=== PATIENT | female | born 1945 | race Caucasian/White ===

== ENCOUNTER → 2024-09-06 | Outpatient (CLI) | payer MEDICARE, MEDICAID, SELFPAY ==
--- NOTE | 2024-09-06 13:00 | XR_ITS ---
Examination: Bone densitometry Date and time of exam:September 06, 2024 1308 hours INDICATIONS: Menopause age 47, family history mother hip fracture secondary to osteoporosis, personal history shoulder fracture Technique: Lumbar spine and hip total bone mineralization values of an calculated. Peak reference and age match control results have been displayed. Findings: Lumbar spine total bone mineralization is0.917 gm/cm2. This is 0.9 standard deviations below peak reference. This is 1.5 standard deviations above age-matched controls. Hip total bone mineralization is 0.570 gm/cm2 This is 3.0 standard deviations below peak reference. This is 1.2 standard deviations above age-matched controls Impression: There is normal mineralization based on lumbar spine measurements. There is osteoporosis based on hip measurements Lumbar mineralization is decreased 1.9% compared with April 18, 2021 Hip mineralization is decreased 7.0% compared with April 18, 2021
== END | disposition home or self-care (01) ==
LOC: CDIM 12:51
PROVIDERS: PCP Family Medicine; Referring Provider Nurse Practitioner Family; Visit Provider Nurse Practitioner Family
DX: M81.0 Age-related osteoporosis without current pathological fracture (principal)
CPT/HCPCS: 77080

== ENCOUNTER 2024-09-30 09:57 | Emergency (ER) | payer MEDICARE, MEDICAID, SELFPAY ==
[2024-09-30 10:24] VITALS: BP 148/83; PULSE 100; RESP 18; TEMP 36.7; O2SAT 99; BMI 18.6
--- NOTE | 2024-09-30 11:28 | EDNOTE_ITS ---
<Statement entered by Cecile العراقي MD - 10/06/24 17:56> As co-signing physician, I was present and available for consult prn. I concur with the plan and care as documented by the midlevel provider. ED Animal Bite RME/HPI General Chief Complaint: Animal Bite Stated Complaint: Cat bite by her own cat Time Seen by Provider: 09/30/24 10:29 Source: patient Arrival date/time: 09/30/24 09:57 this is a 79-year-old female who presents to the emergency department with complaints of a cat bite to her left lower limb. Patient reports she was and by her own cat while she provoked her. She reports she immediately cleansed the area there is 2 puncture wounds. no signs of infections. Related Data Home Medications ?Medication ?Instructions ?Recorded ?Confirmed gabapentin 300 mg capsule 300 mg PO TID #0 caps 11/05/16 07/11/23 albuterol sulfate 90 mcg/actuation 2 inh inhalation Q6HR PRN 05/01/21 07/11/23 aerosol inhaler Shortness Of Breath acetaminophen 650 mg 650 mg PO Q8HR PRN Pain 07/11/23 07/11/23 tablet,extended release (Arthritis Pain Relief (acetaminophen) ER) folic acid 400 mcg tablet 400 mcg PO DAILY 07/11/23 07/11/23 furosemide 20 mg tablet 20 mg PO BID 07/11/23 07/11/23 metoclopramide HCl 5 mg tablet 5 mg PO BID 07/11/23 07/11/23 naproxen 500 mg tablet 500 mg PO BID PRN Pain 07/11/23 07/11/23 pantoprazole 40 mg tablet,delayed 40 mg PO BID 07/11/23 07/11/23 release tramadol 50 mg tablet 50 mg PO Q6HR PRN Pain 07/11/23 07/11/23 umeclidinium 62.5 mcg-vilanterol 1 ea inhalation DAILY 07/11/23 07/11/23 25 mcg/actuation powdr for inhalation (Anoro Ellipta) Previous Rx's ?Medication ?Instructions ?Recorded amoxicillin 875 mg-potassium 1 tab PO BID #14 tabs 09/30/24 clavulanate 125 mg tablet Allergies Allergy/AdvReac Type Severity Reaction Status Date / Time No Known Allergies Allergy Verified 09/30/24 10:02 Review of Systems Review of Systems Systems Reviewed: All systems reviewed, normal except as documented Narrative Review of Systems: Gen: No fever, no chills, no weight loss EYES: No discharge, no visual changes, no pain HEENT: No ear pain, no congestion, no sore throat PULM: No shortness of breath, no cough, no congestion CV: No chest pain, no dyspnea on exertion, no palpitations GI: No nausea, no vomiting, no diarrhea, no pain, no constipation : No frequency, no urgency,? no dysuria Musc/skel: No joint pain, no back pain Skin: cat bite ED Exam Narrative Physical exam: General: Sittiing in Exam table in no acute distress, answering questions appropriately HENT: normocephalic, atraumatic, EOMI, PERRLA, moist mucous membranes Chest: chest wall is nontender Cardiac: regular rate and rhythm, normal S1 and S2, no murmurs, rubs, or gallops, capillary refill ?2 seconds Pulmonary: clear to auscultation bilaterally, no wheezing, crackles, or rhonchi Abdominal: active bowel sounds, soft, nontender, nondistended Neuro: A&OX3, CN II-XII intact, sensation grossly intact bilaterally in UE and LE. Skin: no rashes, no ecchymosis Ext: left lower limb- two puncture wounds, n none of erythemic no streaking noted. Course Quality Measures none Vital Signs Vital signs: Vital Signs Temperature 98.1 F 09/30/24 10:24 Pulse Rate 100 09/30/24 10:24 Respiratory Rate 18 09/30/24 10:24 Blood Pressure 148/83 H 09/30/24 10:24 Pulse Oximetry (%) 99 09/30/24 10:24 Oxygen Delivery Method Room Air 09/30/24 10:24 Animal Bite MDM Narrative MDM Narrative:: Non provoked cat bite, DT up to date Augmentin Sent to pharmacy Area cleansed dressing placed Patient data External records reviewed:: [facility] previous records Clinical information provided by:: patient Social determinants that could affect healthcare access:: none Patient has the following chronic illnesses:: none How is presenting disease/condition affected by chronic disease/condition?: no chronic disease Evaluation data The following diagnostics were reviewed and interpreted by me:: other (specify) Lab and/or radiology exams considered but not ordered:: none Interpretation Summary: none Medications / Prescriptions Medications or Prescriptions considered but not ordered:: none Medication administrations:: none Consultations Consultation(s) initiated? (list below): No Diagnosis Differential diagnosis animal bite: bite by animal, cat bite, dog bite and rabies contact Most likely diagnosis given after review of the tests above:: Cat bite Admission Indicated Admission indicated?: not indicated Explain why admission is indicated or not indicated:: none Admission Request Was there a request for admission?: No Disposition Plan Disposition Plan: Discharge Discharge Attestation Discharge Attestation: The patient and all family members were given an opportunity to ask questions and understood the discharge instructions. Discharge instructions specifically effects, indications for sooner follow up or return to the emergency department, and the expected course of current diagnosis. Patient condition: Stable Discharge Plan Plan Patient Disposition: HOME (Self Care) Patient condition on transfer: Stable Prescriptions/Referrals Prescriptions/Med Rec: New amoxicillin-pot clavulanate 875-125 mg tablet 1 tab PO BID Qty: 14 0RF No Action gabapentin 300 MG capsule 300 mg PO TID Qty: 0 albuterol sulfate 90 mcg/actuation HFA aerosol inhaler 2 inh INHALATION Q6HR PRN (Reason: Shortness Of Breath) Patient Comments: INHALE 1 PUFF BY MOUTH 4 TIMES A DAY NEEDED FOR SHORTNESS OF BREATH OR WHEEZING folic acid 400 mcg Tablet 400 mcg PO DAILY tramadol 50 mg tablet 50 mg PO Q6HR PRN (Reason: Pain) Hold Instructions: Resume on 07/12/23. Patient Comments: TAKE 1 TABLET BY MOUTH EVERY 6 HOURS FOR 10 DAYS acetaminophen [Arthritis Pain Relief (acetam)] 650 mg tablet extended release 650 mg PO Q8HR PRN (Reason: Pain) Patient Comments: TAKE 1 CAPLET BY MOUTH EVERY 8 HOURS NEEDED FOR 30 DAYS metoclopramide HCl 5 mg tablet 5 mg PO BID Patient Comments: TAKE 1 TABLET BY MOUTH EVERY MORNING AND AT BEDTIME pantoprazole 40 mg tablet,delayed release (DR/EC) 40 mg PO BID Patient Comments: TAKE 1 TABLET BY MOUTH TWICE A DAY furosemide 20 mg tablet 20 mg PO BID Patient Comments: TAKE 1 TABLET BY MOUTH TWICE A DAY naproxen 500 mg tablet 500 mg PO BID PRN (Reason: Pain) Patient Comments: TAKE 1 TABLET TWICE A DAY BY ORAL ROUTE NEEDED. Anoro Ellipta 62.5-25 mcg/actuation blister with device 1 ea INHALATION DAILY Patient Comments: INHALE 1 PUFF EVERY DAY DIRECTED Problem List Clinical Impression: Cat bite Patient/Caregiver Discharge Instructions Discharge Activity: activity as tolerated Education Materials: ED Cat Bite Additional Instructions: Please keep area clean and dry. Apply [id number] triple biotic. Start antibiotic as directed. Please return to the emergency department t if you have any worsening symptoms or change in condition Print Language: Togolese Stand Alone Forms: Anne Award Info., Patient Portal Info Letter PA/AIRFRAME TECHNICIAN Supervising Physician PA/AIRFRAME TECHNICIAN Supervising Physician: Dr. Ambrosio
== END 2024-09-30 11:35 | disposition home or self-care (01) ==
PROVIDERS: Emergency Provider Emergency Medicine
DX: S81.832A Puncture wound without foreign body, left lower leg, initial encounter (principal); W55.01XA Bitten by cat, initial encounter
CPT/HCPCS: 99281

== ENCOUNTER → 2025-02-08 | Outpatient (CLI) | payer SELFPAY ==
--- NOTE | 2025-02-08 10:30 | XR_ITS ---
Examination: Diagnostic digital mammography, bilateral Computer aided detection 3-D breast Tomosynthesis, bilateral Date and time of exam: February 08, 2025 1024 hours INDICATIONS: Mammogram May 20, 2024 focal asymmetry upper outer right breast Technique: Nonmagnified MLO, CC views of the breasts to been obtained, reconstructed from 3-D Tomosynthesis images. R2 computer aided detection program utilized for evaluation of suspicious masses and/or abnormal calcifications. 3-D Tomosynthesis images obtained. Findings: The breasts are heterogeneously dense, which may obscure small masses Focal asymmetry remains partially circumscribed upper outer right breast, 30 mm Impression: BI-RADS Category 0: Incomplete: Need additional imaging evaluation Recommend right breast sonography follow-up to further assess 30 mm focal asymmetry upper outer right breast.
[2025-02-08 11:41] LABS: Anion Gap 7 (7-16); BUN/Creatinine Ratio 16 Ratio (12-20); Blood Urea Nitrogen 13 mg/dL (9-23); Calcium 10.1 mg/dL (8.3-10.6); Carbon Dioxide 30.4 mMol/L (20.0-31.0); Chloride 101 mMol/L (98-107); Creatinine (Component) 0.8 mg/dL (0.6-1.3); Glucose 95 mg/dL (74-106); Osmolality,Calculated 275 (275-295); Potassium 4.3 mMol/L (3.4-5.1); Sodium 138 mMol/L (136-145); eGFR > 60 See Note
== END | disposition home or self-care (01) ==
LOC: CDIM 10:15 → COPL 10:57
PROVIDERS: Referring Provider Nurse Practitioner Family; Visit Provider Radiology Diagnostic Radiology
DX: R92.8 Other abnormal and inconclusive findings on diagnostic imaging of breast (principal)
CPT/HCPCS: 36415; 77062; 77066; 80048; G0279

== ENCOUNTER → 2025-02-14 | Outpatient (CLI) | payer MEDICARE, SELFPAY ==
--- NOTE | 2025-02-14 08:45 | XR_ITS ---
Examination: MRI of brain without intravenous contrast. MRI brain with intravenous contrast. Date and time of exam:February 14, 2025 0935 hours Comparison September 20, 2021 INDICATIONS: Headaches 10 years with numbness in the left hand Technique: Multiple axial and sagittal images of the brain to been obtained. Siemens high-resolution 1.52 Hailey short bore scanner utilized. Sagittal sections, T1 weighted images, TR 500, TE 14, are performed. Axial sections proton-density and T2-weighted images have been obtained. Inversion recovery axial images, TR 9260, TE 111, TR 2500. Diffusion weighted images, axial sections, TR 4800, TE 128, B value 1000. Axial sections, ADC map, TR 4800, TE 128. Axial and coronal images were also obtained post 9 cc gadolinium administered intravenously. Findings:: Enlargement of the sella turcica is not present. The optic chiasm and infundibular stalk are not remarkable. There is no localized enlargement of the medulla or estela. Fourth ventricle and cerebellar tonsils appear normal in position. No subacute area of hemorrhage density is seen. Fourth ventricle is midline. Mass in the cerebellopontine angle region is not evident. 7th and 8th nerve complexes exhibit symmetry Globes are symmetrical Orbital musculature including medial lateral rectus muscles do not exhibit abnormality Increased white matter signal is prominent Effacement of the cortical sulcal markings is not identified. Mass effect upon the ventricular system is not identified. Diffusion-weighted images demonstrate no focus of restricted diffusion Contrast images demonstrate no abnormal cerebellar or cerebral enhancement Impression: Negative for acute hemorrhage mass effect or midline shift No acute infarct Prominent chronic microvascular white matter change
== END | disposition home or self-care (01) ==
LOC: SMRI 08:29
PROVIDERS: PCP Psychiatry & Neurology Neurology; Referring Provider Psychiatry & Neurology Neurology; Visit Provider Psychiatry & Neurology Neurology
DX: R90.82 White matter disease, unspecified (principal)
CPT/HCPCS: 70553; A9579

== ENCOUNTER → 2025-02-23 | Outpatient (CLI) | payer MEDICARE, SELFPAY ==
--- NOTE | 2025-02-23 14:11 | XR_ITS ---
Examination: Shoulder,left, 3 views Technique: Shoulder AP internal rotation, AP external rotation, Y view shoulder, 3 views Exam date and time :February 23, 2025 1424 hours INDICATIONS: Left shoulder pain months FINDINGS: Prominent osteopenia Moderate osteoarthritis left glenohumeral joint No fracture or dislocation IMPRESSION: Moderate osteoarthritis left glenohumeral joint
== END | disposition home or self-care (01) ==
PROVIDERS: PCP Internal Medicine; Referring Provider Nurse Practitioner Family; Visit Provider Nurse Practitioner Family
DX: M19.012 Primary osteoarthritis, left shoulder (principal)
CPT/HCPCS: 73030

== ENCOUNTER → 2025-03-18 | Outpatient (CLI) | payer MEDICARE, SELFPAY ==
--- NOTE | 2025-03-18 11:30 | XR_ITS ---
Examination: Breast ultrasound, unilateral, right Date and time of exam: March 18, 2025 1155 hours Comparison May 18, 2024 INDICATIONS: Mammogram February 08, 2025 30 mm focal asymmetry upper outer right breast, family history breast cancer Technique: Real-time gong scale ultrasonographic imaging performed right breast including all 4 quadrants as well as nipple retroareolar and axillary region. Findings: No cystic or solid mass within the breasts 12 mm 16mm right axillary lymph nodes Images of the lymph node are not optimal on this study IMPRESSION: BI-RADS Category 0: Incomplete: Need additional imaging evaluation Recommend repeating the axillary portion of this study with the radiologist in attendance
== END | disposition home or self-care (01) ==
LOC: CDIM 11:45
PROVIDERS: PCP Internal Medicine; Referring Provider Nurse Practitioner Family; Visit Provider Nurse Practitioner Family
DX: N64.89 Other specified disorders of breast (principal)
CPT/HCPCS: 76641